=== PATIENT | female | born 1955 | race Caucasian/White ===

== ENCOUNTER 2017-12-06 08:42 | Emergency (ER) | payer OTHER, BC ==
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
[2017-12-06] MEDS: Ondansetron 4 MG/2 ML SDV IV ONE (09:40)
[2017-12-06] MEDS: Morphine 2 MG/ML Syringe IVPUSH ONE (09:43)
[2017-12-06] MEDS: Metoclopramide 10 MG/2 ML SDV IVPUSH ONE (10:28)
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
[2017-12-06 11:32] VITALS: BP 127/60
== END 2017-12-06 11:31 | disposition home or self-care (01) ==
LOC: DL.ED 08:42
DX: S42.295A Other nondisplaced fracture of upper end of left humerus, initial encounter for closed fracture (principal); E03.9 Hypothyroidism, unspecified; Z88.2 Allergy status to sulfonamides; Z79.899 Other long term (current) drug therapy; W19.XXXA Unspecified fall, initial encounter
CPT/HCPCS: 73200; 96374; 96375; 99284; J2270; J2405; J2765

== ENCOUNTER 2017-12-06 12:52 | Emergency (ER) | payer OTHER, BC ==
[2017-12-06 12:59] VITALS: BP 146/58
--- NOTE | 2017-12-06 14:20 | CR ---
Clinical history: 62-year-old female left hip pain (fall in which she fractured humeral head left sabi ulder). Interpretation: AP pelvis/hips and AP/frog lateral views of the left hip confirm chronic lower lumbar disc disease and hypertrophic arthritic changes of the spine. Symmetric spacing normal-appearing SI and hip joints. *No sign of pelvic or either hip fracture/dislocation. No foreign bodies. Note: Round 1.6 cm diameter densely sclerotic lesion (bone island? Bone infarct? Osteoblastic neoplas m?), medial aspect of the left hip joint, in the innominate bone that is new since previous plain elizabeth m exam 05 October 2011. Significance? Clinical?
--- NOTE | 2017-12-06 14:35 | EDM.PDOC ---
ED HPI GENERAL MEDICAL PROBLEM - General Chief Complaint: Lower Extremity Injury/Pain Stated Complaint: LEFT HIP Time Seen by Provider: 12/06/17 14:00 Source of Information: Reports: Patient History Limitations: Reports: No Limitations - History of Present Illness INITIAL COMMENTS - FREE TEXT/NARRATIVE: This 62 yo female patient returned to the ED after being seen earlier today due to a fall. Since the patient was discharged, the patient has began to have increased pain in her left hip and difficulties lifting her left leg. The patient reports the pain shoots into her upper left inner thigh with flexion of the hip. Onset: Today Duration: Constant Location: Reports: Lower Extremity, Left Quality: Reports: Ache, Dull Severity: Moderate Improves with: Reports: None Worsens with: Reports: None Associated Symptoms: Reports: No Other Symptoms Left Hip Pain Score (Numeric/FACES): 4 - Related Data Allergies Allergy/AdvReac Type Severity Reaction Status Date / Time Sulfa (Sulfonamide Allergy Rash Verified 12/06/17 12:59 Antibiotics) Home Meds: Home Meds Cholecalciferol (Vitamin D3) [Vitamin D3] 1,000 units PO DAILY 06/01/16 [History ] Hydrochlorothiazide 25 mg PO DAILY 06/01/16 [History] Levothyroxine 125 mcg PO ACBREAKFAST 06/01/16 [History] Past Medical History Cardiovascular History: Reports: Hypertension Gastrointestinal History: Reports: None 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: Reports: 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: Musculoskeletal History: Reports: Fracture Endocrine/Metabolic History: Reports: Hypothyroidism - Infectious Disease History Infectious Disease History: Reports: Chicken Pox - Past Surgical History GI Surgical History: Reports: Cholecystectomy, Hernia Repair/Other, Other (See Below) Female Surgical History: Reports: Section, Hysterectomy Endocrine Surgical History: Reports: None Musculoskeletal Surgical History: Reports: Knee Replacement Social & Family History - Family History Family Medical History: Noncontributory - Tobacco Use Smoking Status *Q: Never Smoker Second Hand Smoke Exposure: No - Recreational Drug Use Recreational Drug Use: No Review of Systems - Review of Systems Review Of Systems: ROS reveals no pertinent complaints other than HPI. ED EXAM, GENERAL - Physical Exam Exam: See Below Exam Limited By: No Limitations General Appearance: Alert, WD/WN, Moderate Distress, Obese Eye Exam: Bilateral Eye: EOMI, Normal Inspection, PERRL Ears: Normal External Exam, Normal Canal, Hearing Grossly Normal, Normal TMs Nose: Normal Inspection, Normal Mucosa, No Blood Throat/Mouth: Normal Inspection, Normal Lips, Normal Teeth, Normal Gums, Normal Oropharynx, Normal Voice, No Airway Compromise Head: Atraumatic, Normocephalic Neck: Normal Inspection, Supple, Non-Tender, Full Range of Motion Respiratory/Chest: No Respiratory Distress, Lungs Clear, Normal Breath Sounds, No Accessory Muscle Use, Chest Non-Tender Cardiovascular: Normal Peripheral Pulses, Regular Rate, Rhythm, No Edema, No Gallop, No JVD, No Murmur, No Rub GI/Abdominal: Normal Bowel Sounds, Soft, Non-Tender, No Organomegaly, No Distention, No Abnormal Bruit, No Mass (Female) Exam: Deferred Rectal (Female) Exam: Deferred Back Exam: Normal Inspection, Full Range of Motion, NT Extremities: Leg Pain (left hip) Neurological: Alert, Oriented, CN II-XII Intact, Normal Cognition, Abnormal Gait (due to pain in her left hip and fracture of her right upper arm) Psychiatric: Normal Affect, Normal Mood Skin Exam: Warm, Dry, Intact, Normal Color, No Rash Lymphatic: No Adenopathy Course - Vital Signs Last Recorded V/S: Last Vital Signs Temp 36.3 C 12/06/17 12:54 Pulse 96 12/06/17 12:54 Resp 18 12/06/17 12:54 BP 146/58 H 12/06/17 12:54 Pulse Ox 98 12/06/17 12:54 Departure - Departure Time of Disposition: 14:35 Disposition: Home, Self-Care 01 Condition: Fair Clinical Impression: Strain of left hip Qualifiers: Encounter type: initial encounter Qualified Code(s): S76.012A - Strain of muscle, fascia and tendon of left hip, initial encounter - Discharge Information Instructions: Muscle Strain, [id number] Forms: ED Department Discharge Care Plan Goals: The patient was advised of the examination and x-ray results during the visit. The patient was encouraged to rest and ice the area. If the patient has any additional symptoms or concerns, the patient should follow-up with her primary care facility or return to the emergency department.
== END 2017-12-06 14:43 | disposition home or self-care (01) ==
LOC: DL.ED 12:52
DX: S76.012A Strain of muscle, fascia and tendon of left hip, initial encounter (principal); I10 Essential (primary) hypertension; E03.9 Hypothyroidism, unspecified; Z88.2 Allergy status to sulfonamides; Z79.899 Other long term (current) drug therapy; W19.XXXA Unspecified fall, initial encounter
CPT/HCPCS: 99283

== ENCOUNTER 2018-06-26 14:52 | Emergency (ER) | payer BC ==
--- NOTE | 2018-06-26 14:59 | EDM.PDOC ---
ED HPI GENERAL MEDICAL PROBLEM - General Chief Complaint: Abdominal Pain Stated Complaint: FOR TRANSFER TO [facility] Time Seen by Provider: 06/26/18 14:59 Source of Information: Reports: Patient, Old Records, Provider (Dr. Mccarty), RN, RN Notes Reviewed History Limitations: Reports: No Limitations - History of Present Illness INITIAL COMMENTS - FREE TEXT/NARRATIVE: Pt sent from clinic by Dr. Mccarty for evaluation of incarcerated abdominal hernia with bowel obstructions, and abdominal wall cellulitis. Pt reports onset of abdominal pain yesterday. Admits to nausea, but no vomiting. She arrived to ER with a temperature of 101.2F. She last ate about 0700HRS this morning. Pt states that she has a "highly complex abdomen for surgeries" and she must be transferred to [facility]. Pt prefers Dr. Carranza. Pt's daughter works as a nurse at [employer] in [place]. Onset: Gradual Onset Date: 06/25/18 Duration: Constant, Getting Worse Location: Reports: Abdomen Quality: Reports: Ache Severity: Moderate Improves with: Reports: None Worsens with: Reports: Movement (and palpation) Associated Symptoms: Reports: No Other Symptoms Middle Abdomen Pain Score (Numeric/FACES): 4 - Related Data Allergies Allergy/AdvReac Type Severity Reaction Status Date / Time Sulfa (Sulfonamide Allergy Rash Verified 12/06/17 12:59 Antibiotics) Home Meds: Home Meds Cholecalciferol (Vitamin D3) [Vitamin D3] 1,000 units PO DAILY 06/01/16 [History ] Hydrochlorothiazide 25 mg PO DAILY 06/01/16 [History] Levothyroxine 125 mcg PO ACBREAKFAST 06/01/16 [History] Past Medical History Cardiovascular History: Reports: Hypertension Gastrointestinal History: Reports: None 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: Reports: 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: Musculoskeletal History: Reports: Fracture Endocrine/Metabolic History: Reports: Hypothyroidism - Infectious Disease History Infectious Disease History: Reports: Chicken Pox - Past Surgical History HEENT Surgical History: Reports: Tonsillectomy GI Surgical History: Reports: Bariatric Procedure, Cholecystectomy, Colonoscopy , Hernia, Abdominal, Hernia Repair/Other, Shala Fundoplication, Other (See Below) Female Surgical History: Reports: Section, Hysterectomy Endocrine Surgical History: Reports: None Musculoskeletal Surgical History: Reports: Knee Replacement Social & Family History - Family History Family Medical History: Noncontributory - Living Situation & Occupation Living situation: Reports: , with Spouse ED ROS GENERAL - Review of Systems Review Of Systems: ROS reveals no pertinent complaints other than HPI. ED EXAM, GI/ABD - Physical Exam Exam: See Below Exam Limited By: No Limitations General Appearance: Alert, No Apparent Distress, Obese, Other (acutely ill, but non-toxic appearing) Eyes: Bilateral: Normal Appearance Ears: Hearing Grossly Normal Nose: Normal Inspection Throat/Mouth: Normal Inspection, Normal Lips, Normal Voice, No Airway Compromise Head: Atraumatic, Normocephalic Neck: Normal Inspection Respiratory/Chest: No Respiratory Distress, Lungs Clear, Normal Breath Sounds, No Accessory Muscle Use, Chest Non-Tender Cardiovascular: Regular Rate, Rhythm, No Edema, Tachycardia GI/Abdominal Exam: Soft, No Distention, Tender (mid-abdomen with erythematous intact skin, old midline surgical scar, and focal tenderness), Abnormal Bowel Sounds (hypoactive). No: Guarding, Rigid, Rebound (Female) Exam: Deferred Rectal (Female) Exam: Deferred Extremities: Normal Inspection Neurological: Alert, Oriented, CN II-XII Intact, Normal Cognition, Normal Gait, No Motor/Sensory Deficits Psychiatric: Normal Affect, Normal Mood Course - Vital Signs Last Recorded V/S: Last Vital Signs Temp 38.4 C H 06/26/18 15:04 Pulse 104 H 06/26/18 15:04 Resp 15 06/26/18 15:04 BP 180/87 H 06/26/18 15:04 Pulse Ox 97 06/26/18 15:04 - Orders/Labs/Meds Orders: Active Orders 24 hr Category Date Time Status Peripheral IV Care [RC] . DIRECTED Care 06/26/18 15:06 Ordered AMYLASE [CHEM] Stat Lab 06/26/18 15:05 Ordered CBC WITH AUTO DIFF [HEME] Stat Lab 06/26/18 15:05 Ordered COMPREHENSIVE METABOLIC PN,CMP [CHEM] Stat Lab 06/26/18 15:05 Ordered CULTURE BLOOD [BC] Stat Lab 06/26/18 15:06 Ordered CULTURE BLOOD [BC] Stat Lab 06/26/18 15:06 Ordered LACTIC ACID [CHEM] Stat Lab 06/26/18 15:05 Ordered LIPASE [CHEM] Stat Lab 06/26/18 15:05 Ordered Piperacillin/Tazobactam [Zosyn] 4.5 gm Med 06/26/18 15:06 Ordered Sodium Chloride 0.9% [Normal Saline] 100 ml IV ONETIME Sodium Chloride 0.9% [Normal Saline] 1,000 ml Med 06/26/18 15:05 Ordered IV .BOLUS Sodium Chloride 0.9% [Saline Flush] Med 06/26/18 15:06 Ordered 10 ml FLUSH ASDIRECTED PRN Blood Culture x2 Reflex Set [OM.PC] Stat Oth 06/26/18 15:05 Ordered Peripheral IV Insertion Adult [OM.PC] Stat Oth 06/26/18 15:05 Ordered Medication Orders Piperacillin Sod/Tazobactam (Sod 4.5 gm/ Sodium Chloride) 100 mls @ 200 mls/hr IV ONETIME ONE Stop: 06/26/18 15:35 Sodium Chloride (Normal Saline) 1,000 mls @ 999 mls/hr IV .BOLUS ONE Stop: 06/26/18 16:05 Sodium Chloride (Saline Flush) 10 ml FLUSH ASDIRECTED PRN PRN Reason: Keep Vein Open Labs: *See lab results from 06/26/18 clinic visit. Meds: Medications Generic Name Dose Route Start Last Admin Trade Name Freq PRN Reason Stop Dose Admin Piperacillin Sod/Tazobactam 100 mls @ 200 mls/hr 06/26/18 15:06 Sod 4.5 gm/ Sodium Chloride IV 06/26/18 15:35 ONETIME ONE Sodium Chloride 1,000 mls @ 999 mls/hr 06/26/18 15:05 Normal Saline IV 06/26/18 16:05 .BOLUS ONE Sodium Chloride 10 ml 06/26/18 15:06 Saline Flush FLUSH ASDIRECTED PRN Keep Vein Open - Radiology Interpretation Free Text/Narrative:: [facility] [place] [facility] Final Radiology Report with Addendum Call: [phone] assistance Online chat: [email or web address] Name: NELL GUEVARA Age: 63Years F Date: 06/26/2018 SSN: -- : [id number] Study: CT ABDOMEN/PELVIS W Requesting Physician: WENDY MCCARTY Images: [id number] Addl Studies: Provided Clinical History: Contrast: With Contrast Medium: ISOVUE 300 Contrast Amount: 100 mL Contrast Method: LAC Page 1 of 2 Addendum created by Munir Bernardo MD on 06/26/2018 2:18 PM Central Time ([place] & [place]) Dr. Wendy Mccarty was notified of these findings by telephone at 220 pm central time. Initial Report created on 06/26/2018 2:15 PM Central Time ([place] & [place]) EXAM: CT Abdomen and Pelvis With Intravenous Contrast CLINICAL HISTORY: 63 years old, female; Signs and symptoms; Other: ? Anterior abd wall abscess; Prior surgery; Surgery date: 6+ months; Surgery type: Appendectomy hysterectomy cholecystectomy TECHNIQUE: Axial computed tomography images of the abdomen and pelvis with intravenous contrast. All CT scans at this facility use at least one of these dose optimization techniques: automated exposure control; mA and/or kV adjustment per patient size (includes targeted exams where dose is matched to clinical indication); or iterative reconstruction. Coronal and sagittal reformatted images were created and reviewed. CONTRAST: 100 mL of ISOVUE 300 administered intravenously. COMPARISON: No relevant prior studies available. FINDINGS: Lung bases: Unremarkable. No mass. No consolidation. ABDOMEN: NELL GUEVARA | Final Radiology Report CONFIDENTIALITY STATEMENT This report is intended only for use by the referring physician, and only in accordance with law. If you received this in error, call [phone]. Page 2 of 2 Liver: Unremarkable. No mass. Gallbladder and bile ducts: Cholecystectomy. No ductal dilation. Pancreas: Unremarkable. No mass. No ductal dilation. Spleen: Unremarkable. No splenomegaly. Adrenals: Unremarkable. No mass. Kidneys and ureters: Unremarkable. No solid mass. No hydronephrosis. Stomach and bowel: Status post gastric surgery. Status post distal colonic surgery. Colon diverticulosis without diverticulitis. Anterior abdominal wall hernia containing a piece of colon causing partial obstruction. There is surrounding inflammatory changes suggesting incarceration. PELVIS: Appendix: No findings to suggest acute appendicitis. Bladder: Unremarkable. No mass. Reproductive: Hysterectomy. ABDOMEN and PELVIS: Intraperitoneal space: Unremarkable. No free air. No significant fluid collection. Bones/joints: Degenerative changes in the spine. Grade 1 anterolisthesis of L4 on L5. No acute fracture. No dislocation. Soft tissues: Anterior abdominal wall mesh in place. Vasculature: Unremarkable. No abdominal aortic aneurysm. Lymph nodes: Unremarkable. No enlarged lymph nodes. IMPRESSION: Anterior abdominal wall hernia containing a piece of colon causing partial obstruction. There is surrounding inflammatory changes suggesting incarceration. Thank you for allowing us to participate in the care of your patient. Dictated and Authenticated by: Munir Bernardo MD 06/26/2018 2:15 PM Central Time ([place] & [place]) CT Results Date: 06/26/18 Departure - Departure Time of Disposition: 15:21 Disposition: DC/Tfer to [facility] 02 Condition: Serious Clinical Impression: Incarcerated ventral hernia, Abdominal wall cellulitis, Incisional hernia with bowel obstruction - Discharge Information *PRESCRIPTION DRUG MONITORING PROGRAM REVIEWED*: Not Applicable *COPY OF PRESCRIPTION DRUG MONITORING REPORT IN PATIENT SHRUTHI: Not Applicable Forms: ED Department Discharge, Interfacility Transfer EMTALA - My Orders Last 24 Hours: My Active Orders 06/26/18 15:05 AMYLASE [CHEM] Stat CBC WITH AUTO DIFF [HEME] Stat COMPREHENSIVE METABOLIC PN,CMP [CHEM] Stat LACTIC ACID [CHEM] Stat LIPASE [CHEM] Stat Sodium Chloride 0.9% [Normal Saline] 1,000 ml IV .BOLUS Blood Culture x2 Reflex Set [OM.PC] Stat Peripheral IV Insertion Adult [OM.PC] Stat 06/26/18 15:06 Peripheral IV Care [RC] . DIRECTED CULTURE BLOOD [BC] Stat CULTURE BLOOD [BC] Stat Piperacillin/Tazobactam [Zosyn] 4.5 gm Sodium Chloride 0.9% [Normal Saline] 100 ml IV ONETIME Sodium Chloride 0.9% [Saline Flush] 10 ml FLUSH ASDIRECTED PRN - Assessment/Plan Last 24 Hours: My Active Orders 06/26/18 15:05 AMYLASE [CHEM] Stat CBC WITH AUTO DIFF [HEME] Stat COMPREHENSIVE METABOLIC PN,CMP [CHEM] Stat LACTIC ACID [CHEM] Stat LIPASE [CHEM] Stat Sodium Chloride 0.9% [Normal Saline] 1,000 ml IV .BOLUS Blood Culture x2 Reflex Set [OM.PC] Stat Peripheral IV Insertion Adult [OM.PC] Stat 06/26/18 15:06 Peripheral IV Care [RC] . DIRECTED CULTURE BLOOD [BC] Stat CULTURE BLOOD [BC] Stat Piperacillin/Tazobactam [Zosyn] 4.5 gm Sodium Chloride 0.9% [Normal Saline] 100 ml IV ONETIME Sodium Chloride 0.9% [Saline Flush] 10 ml FLUSH ASDIRECTED PRN
[2018-06-26 15:05] VITALS: BP 180/87
[2018-06-26] MEDS ORDERED: Sodium Chloride 0.9% 1,000 ML IV ONE (15:05)
[2018-06-26] MEDS ORDERED: Piperacillin/Tazobactam 4.5 GM in Sodium Chloride 0.9% 100 ML IV ONE (15:06)
[2018-06-26] MEDS ORDERED: Sodium Chloride 0.9% 10 ML Syringe FLUSH PRN (15:06)
[2018-06-26] MEDS ORDERED: HYDROmorphone 1 MG/ML Syringe IVPUSH ONE (15:43)
[2018-06-26] MEDS ORDERED: Ondansetron 4 MG/2 ML SDV IV ONE (15:43)
[2018-06-26 15:57] LABS: ANION GAP 12.2; CHLORIDE,CL 96 mmol/L (101-111); SODIUM,NA 134 mmol/L (135-145)
== END 2018-06-26 16:25 ==
LOC: DL.ED 14:52
DX: K43.0 Incisional hernia with obstruction, without gangrene (principal); L03.311 Cellulitis of abdominal wall; I10 Essential (primary) hypertension; Z79.899 Other long term (current) drug therapy; Z88.2 Allergy status to sulfonamides
CPT/HCPCS: 36415; 80053; 82150; 83605; 83690; 85025; 87040; 96365; 96375; 99285; J1170; J2405; J2543; J7030; J7050

== ENCOUNTER 2018-07-06 16:17 | Emergency (ER) | payer BC ==
[2018-07-06 17:24] VITALS: BP 134/85
[2018-07-06] MEDS ORDERED: Clindamycin Phosphate 900 MG in Sodium Chloride 0.9% 100 ML IV ONE (19:19)
--- NOTE | 2018-07-06 19:26 | EDM.PDOC ---
ED HPI GENERAL MEDICAL PROBLEM - General Chief Complaint: Skin Complaint Stated Complaint: INFECTION IN INCISION? [id number] Time Seen by Provider: 07/06/18 19:21 Source of Information: Reports: Patient History Limitations: Reports: No Limitations - History of Present Illness INITIAL COMMENTS - FREE TEXT/NARRATIVE: states had abd surgery in [place] last week and been home had wound vac removed and last night noticed incision site is all red. denies F/C. appetite good without N/V/pain. feels good other than seeing the site is red. Surgeon Aliya Pitt fax [phone]. education and training coordinator [phone]. 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: Musculoskeletal History: Reports: Fracture Endocrine/Metabolic History: Reports: Hypothyroidism - Infectious Disease History Infectious Disease History: Reports: Chicken Pox - Past Surgical History HEENT Surgical History: Reports: Tonsillectomy GI Surgical History: Reports: Bariatric Procedure, Cholecystectomy, Colonoscopy , Hernia, Abdominal, Hernia Repair/Other, Shala Fundoplication, Other (See Below) Other GI Surgeries/Procedures: Abdominal surgery Female Surgical History: Reports: Section, Hysterectomy Endocrine Surgical History: Reports: None Musculoskeletal Surgical History: Reports: Knee Replacement Social & Family History - Family History Family Medical History: Noncontributory - Tobacco Use Smoking Status *Q: Never Smoker Second Hand Smoke Exposure: No - Caffeine Use Caffeine Use: Reports: None - Recreational Drug Use Recreational Drug Use: No - Living Situation & Occupation Living situation: Reports: , with Spouse ED ROS GENERAL - Review of Systems Review Of Systems: ROS reveals no pertinent complaints other than HPI. ED EXAM, SKIN/RASH Exam: See Below Exam Limited By: No Limitations General Appearance: Alert, WD/WN, Anxious Ears: Hearing Grossly Normal Throat/Mouth: Normal Voice, No Airway Compromise Head: Atraumatic Neck: Non-Tender, Full Range of Motion Respiratory/Chest: No Respiratory Distress Cardiovascular: Regular Rate, Rhythm GI/Abdominal: Soft, Other (pt states abd is always hard from all the scar tissues inside.). No: Distended, Guarding, Rigid, Rebound, Tender Neurological: Alert, Oriented, Normal Cognition, Normal Gait, No Motor/Sensory Deficits Psychiatric: Anxious Skin: Warm, Dry, Normal Color Location, Skin: Abdomen Associated features: Warmth, Inflammation Lymphatic: No Adenopathy Course - Vital Signs Last Recorded V/S: Last Vital Signs Temp 36.9 C 07/06/18 17:08 Pulse 73 07/06/18 17:08 Resp 16 07/06/18 17:08 BP 134/85 07/06/18 17:08 Pulse Ox 96 07/06/18 17:08 - Orders/Labs/Meds Labs: Laboratory Tests 07/06/18 07/06/18 07/06/18 Range/Units 19:30 19:30 19:30 WBC 8.4 (5.0-10.0) 10^3/uL RBC 4.22 (4.2-5.4) 10^6/uL Hgb 12.5 (12.0-16.0) g/dL Hct 39.6 (37.0-47.0) % MCV 93.8 (80-100) fL MCH 29.6 (27.0-34.0) pg MCHC 31.6 L (33.0-35.0) g/dL Plt Count 314 D (150-450) 10^3/uL Neut % (Auto) 63.8 (42.2-75.2) % Lymph % (Auto) 23.2 (20.5-50.1) % [place] % (Auto) 8.7 H (2-8) % Eos % (Auto) 3.7 H (1.0-3.0) % Baso % (Auto) 0.6 (0.0-1.0) % Sodium 140 (135-145) mmol/L Potassium 3.4 L (3.6-5.0) mmol/L Chloride 101 (101-111) mmol/L Carbon Dioxide 29.0 (21.0-31.0) mmol/L Anion Gap 13.4 BUN 12 (7-18) mg/dL Creatinine 0.6 (0.6-1.3) mg/dL Est Cr Clr Drug Dosing 85.24 mL/min Estimated GFR (MDRD) > 60 BUN/Creatinine Ratio 20.00 Glucose 101 (74-105) mg/dL Lactic Acid 2.3 H (0.5-2.2) mmol/L Calcium 8.7 (8.4-10.2) mg/dl Total Bilirubin 0.6 (0.2-1.0) mg/dL AST 22 (10-42) IU/L ALT 21 (10-60) IU/L Alkaline Phosphatase 58 (42-121) IU/L Total Protein 7.7 (6.7-8.2) g/dl Albumin 3.9 (3.2-5.5) g/dl Globulin 3.8 Albumin/Globulin Ratio 1.03 Meds: Medications Discontinued Medications Generic Name Dose Route Start Last Admin Trade Name Freq PRN Reason Stop Dose Admin Clindamycin Phosphate 900 mg/ 106 mls @ 200 mls/hr 07/06/18 19:19 07/06/18 19 :43 Sodium Chloride IV 07/06/18 19:50 200 mls/hr ONETIME ONE Administration - Re-Assessments/Exams Free Text/Narrative Re-Assessment/Exam: 07/06/18 20:23 results discussed with pt & spouse. Departure - Departure Time of Disposition: 20:23 Disposition: Home, Self-Care 01 Condition: Good Clinical Impression: Postoperative wound infection Qualifiers: Encounter type: initial encounter Qualified Code(s): T81.4XXA - Infection following a procedure, initial encounter - Discharge Information Instructions: Wound Infection, Coap-zr-Hyyl Forms: ED Department Discharge Additional Instructions: 1) keep wound clean and dry 2) follow up with family doctor Monday 3) recheck if there is any change or concern rx given; clindamycin 150mg qid x 40
[2018-07-06 20:03] LABS: ANION GAP 13.4; CHLORIDE,CL 101 mmol/L (101-111); SODIUM,NA 140 mmol/L (135-145)
== END 2018-07-06 20:32 | disposition home or self-care (01) ==
LOC: DL.ED 16:17
DX: T81.4XXA Infection following a procedure, initial encounter (principal); E03.9 Hypothyroidism, unspecified; Z79.899 Other long term (current) drug therapy; Z88.2 Allergy status to sulfonamides
CPT/HCPCS: 36415; 80053; 83605; 85025; 96365; 99283; J3490; J7050